=== PATIENT | male | born 1950 | race Caucasian/White ===

== ENCOUNTER 2021-09-05 14:34 | Emergency (ER) | payer MEDICARE, MEDICAID, SELFPAY ==
--- NOTE | ~2021-09-05 | CT_ITS ---
EXAMINATION: CT brain wo con, CT cervical spine wo con EXAM DATE: 09/05/2021 15:49 INDICATION: Fall, head injury. TECHNIQUE: Spiral CT of the head was performed without contrast. Axial, coronal and sagittal images were reviewed. Spiral CT of the cervical spine was performed without contrast. Axial images were rev iewed. Coronal and sagittal reformatted images were also reviewed. The dose-length product (DLP) fo r this examination was 756.67 (accession [id number]), 660.37 (accession [id number]) mGy-cm. The exposure was tailored according to patient size, and iterative reconstruction (ASIR) was used as additional dose reduction technique. There is no prior study for comparison. FINDINGS: HEAD CT: There is no acute intraparenchymal hemorrhage. No evidence of intraparenchymal brain mass l esion. No evidence of acute infarction. There is mild periventricular and subcortical hypodensity, n onspecific but probably related to small vessel ischemic disease. There is moderate prominence of t he sulci and ventricles related to cerebral atrophy. There is no mass effect or midline shift. The re is no obstructive hydrocephalus suspected. There are no extra-axial collections. There are no ac [place] calvarial fractures. The orbits are unremarkable. Soft tissue is unremarkable. Mild to moderat e bilateral ethmoid mucoperiosteal thickening. CERVICAL CT: There is no evidence of acute cervical fracture. The odontoid process is intact. Pre- dens space is normal. Prevertebral soft tissue is normal. There are no soft tissue abnormalities id entified. There is no disc space widening or traumatic vertebral body subluxation suspected. Severe upper thoracic kyphosis. There is 3.5 cm cystic subcutaneous mass in the posterior midline at the th oracolumbar junction, probably a sebaceous cyst but clinical correlation indicated. Cervical thoracic spondylosis. Pacemaker/AICD device. A detailed level by level evaluation of spondylosis can be added as addendum if requested. IMPRESSION: 1. No acute intracranial findings or cervical fracture. 2. Posterior midline subcutaneous cystic mass at cervicothoracic level, could be a large sebaceous c yst but other histology not totally excludable. Clinical correlation. 3. Cervical spondylosis, age-related intracranial findings. 4. Kyphosis. Reviewed, dictated and finalized at location A. TEGIC DEBRIEFING OFFICER IMPRESSION: 1. No acute intracranial findings or cervical fracture. 2. Posterior midline subcutaneous cystic mass at cervicothoracic level, could be a large sebaceous cyst but other histology not totally excludable. Clinical correlation. 3. Cervical spondylosis, age-related intracranial findings. 4. Kyphosis.
[2021-09-05 14:37] VITALS: BP 116/68; PULSE 50; RESP 20; TEMP 36.4; O2SAT 99
[2021-09-05 14:55] VITALS: BP 104/57; PULSE 50; RESP 18; O2SAT 100
[2021-09-05 16:00] VITALS: BP 110/59; PULSE 51; RESP 18; O2SAT 100
[2021-09-05 17:00] VITALS: BP 101/56; PULSE 51; RESP 18; O2SAT 100
--- NOTE | 2021-09-05 18:22 | ED.HEATRA ---
HPI - Head Injury General Chief complaint: Head Injury Stated complaint: fall head trauma Time Seen by Provider: 09/05/21 18:16 Source: EMS Mode of arrival: EMS Limitations: dementia History of Present Illness HPI Narrative: Patient is a 70-year-old male brought in by EMS from the correction after he tried to get out of his wheelchair and fell headfirst hitting his head on the ground. Per EMS, witnessed by correction staff, no LOC. Patient is a very poor historian due to his history of dementia. Related Data Allergies Allergy/AdvReac Type Severity Reaction Status Date / Time No Known Allergies Allergy Unverified 04/03/14 13:09 Review of Systems Review of Systems: All systems reviewed & are unremarkable except as noted in HPI and below ROS unobtainable: Yes other (Dementia history) Constitutional: Constitutional: Reports as per HPI PMFSH Comments Past medical history: Dementia Family history: Unknown social history: Social history: Lives at a correction unknown if patient never smoked Exam Const: General: cooperative, healthy appearing, comfortable, no acute distress, well developed, alert and awake Orientation/consciousness: oriented to person and No confusion Limitations: no limitations HENMT: Ears: hearing grossly normal bilaterally, TM normal on the right and TM normal on the left General nose exam: Normal external nose present, Normal nares present and No nasal discharge present Face and sinus: normal facial exam Mouth: Yes Normal oral and palatal mucosa present, Yes lip normal, Yes tongue normal and Yes oropharynx normal Throat: posterior oropharynx normal, tonsils normal and uvula midline Other: Abrasion right frontotemporal area Eyes: General: appearance normal, both eyes and all related structures Pupils: Equal, round and reactive pupils present EOM: EOMs intact bilaterally Neck: Neck: normal visual inspection, full ROM, no lymphadenopathy and no meningeal signs Chest: Chest palpation & inspection: normal inspection of the chest Resp: Effort & Inspection: normal respiratory effort, able to speak in complete sentences, no respiratory distress and not tachypneic Auscultation: clear to auscultation bilaterally, no crackles, no rales, no rhonchi and no wheezes Cardio: Rate: regular rate Rhythm: regular rhythm Heart sounds: Murmur heart sound present GI: Inspection: normal to inspection GI Palp: No abdominal tenderness, Yes Soft to palpation, No Tenderness to palpation present (GI), No Guarding due to palpation present (GI), No Rigid due to palpation and No Rebound tenderness present Auscultation: normal bowel sounds : General: Yes no CVA tenderness Back/Spine/Pelvis: Back: no CVA tenderness Skin: General skin exam: normal color, no rashes or lesions noted, elasticity normal and turgor normal Neuro: General: oriented to person, tone normal, moves all extremities, Normal light touch and pain sensation, no meningeal signs, no focal motor deficits, CN's II-XI intact bilaterally and No confusion Cranial nerves: Yes Equal, round and reactive pupils present Speech: No Abnormal speech present Sensory Exam: No Sensory deficit (Neuro) Extrem: General: normal to inspection, full ROM and capillary refill normal Psych: Appearance: grossly normal and well kempt Attitude: cooperative Course Vital Signs Vital signs: Vital Signs Temperature 36.4 C L 09/05/21 14:37 Pulse Rate 50 L 09/05/21 14:37 Respiratory Rate 20 09/05/21 14:37 Blood Pressure 116/68 09/05/21 14:37 Pulse Oximetry 99 09/05/21 14:37 Temperature 36.4 C L 09/05/21 14:37 Pulse Rate 50 L 09/05/21 14:55 Respiratory Rate 18 09/05/21 14:55 Blood Pressure 104/57 L 09/05/21 14:55 Pulse Oximetry 100 09/05/21 14:55 Discharge Plan Discharge Clinical Impression: Fall in elderly patient Closed head injury Qualifiers: Encounter type: initial encounter Qualified Code(s): S09.90XA - Unspecified injury of hea
--- NOTE | 2021-09-05 19:32 | PC.NURSE ---
[facility] ETA [address] [facility] has no truck for transfer tonight. [facility] has no truck for transfer tonight
--- NOTE | 2021-09-05 22:36 | PC.NURSE ---
[facility] here.
== END 2021-09-05 22:42 ==
PROVIDERS: Emergency Provider Emergency Medicine
DX: S09.90XA Unspecified injury of head, initial encounter (principal); F03.90 Unspecified dementia, unspecified severity, without behavioral disturbance, psychotic disturbance, mood disturbance, and anxiety; W05.0XXA Fall from non-moving wheelchair, initial encounter
CPT/HCPCS: 70450; 72125; 99284

== ENCOUNTER 2021-11-26 10:49 | Inpatient (IN) | payer MEDICARE, MEDICAID, SELFPAY ==
[2021-11-26] VITALS (12 sets, daily range): BP systolic 78–138; BP diastolic 49–95; PULSE 52–78; RESP 16–18; TEMP 36.6–36.7; O2SAT 97–99
--- NOTE | ~2021-11-26 | XR_ITS ---
EXAMINATION: XR chest 1V portable EXAM DATE: 11/26/2021 12:25 INDICATION: Cough TECHNIQUE: Portable AP frontal chest x-ray was obtained. There is no prior study for comparison. FINDINGS: There is a dual lead pacemaker/AICD seen with leads projecting over the expected locations of the right atrial appendage and right ventricle. The cardiomediastinal silhouette is prominent but magnified on this AP technique. No confluent consolidation, pneumothorax or pleural effusion suspecte d. There are bony degenerative changes. IMPRESSION: No acute findings. Reviewed, dictated and finalized at location B. OR COPYWRITER IMPRESSION: No acute findings.
--- NOTE | ~2021-11-26 | CT_ITS ---
EXAMINATION: CT brain wo con EXAM DATE: 11/26/2021 12:02 INDICATION: Head injury . TECHNIQUE: Spiral CT of the head was performed without contrast. Axial, coronal and sagittal images were reviewed. The dose-length product (DLP) for this examination was 1362.00 mGy-cm. The exposure was tailored according to patient size, and iterative reconstruction (ASIR) was used as additional do se reduction technique. Comparison is made to prior examination from 09/05/2021. FINDINGS: There is no acute intraparenchymal hemorrhage. No evidence of intraparenchymal brain mass lesion. No evidence of acute infarction. Please note that initial head CT has limited sensitivity f or small or acute infarctions. There is mild periventricular and subcortical hypodensity, nonspecific but probably related to small vessel ischemic disease. There is mild to moderate prominence of the sulci and ventricles related to cerebral atrophy. There is intracranial carotid arteriosclerosis. There are no extra-axial collections. There is no mass effect or midline shift. Patient has had bi lateral ocular lens surgery. Soft tissue is unremarkable. Left maxillary sinus window procedure wit h increase in amount of mucoperiosteal thickening, now most of the sinuses opacified. IMPRESSION: 1. No acute intracranial findings. 2. Chronic age related findings. Reviewed, dictated and finalized at location B. RINARY SURGERY TECHNOLOGIST
--- NOTE | 2021-11-26 11:19 | ECG_ITS ---
Measurements Intervals [place] Rate: 60 P: 53 WA: 165 QRS: -33 QRSD: 106 T: 96 QT: 418 QTc: 420 Interpretive Statements SINUS RHYTHM LEFT AXIS DEVIATION POSSIBLE LEFT VENTRICULAR HYPERTROPHY CANNOT RULE OUT SEPTAL INFARCT, AGE INDETERMINATE CONSIDER HIGH LATERAL INFARCT, AGE INDETERMINATE BASELINE ARTIFACT- I, II, III, AVR, AVL, AVF, V1-V6 ABNORMAL ECG Electronically Signed On 11-26-2021 11:41:40 EMPLOYEE COMMUNICATIONS MANAGER by Raul Schultz D.O.
[2021-11-26] MEDS: SODIUM CHLORIDE 0.9% IV 1,000 ML 999 ML IV CONT (11:29)
[2021-11-26 11:51] LABS: Basophils Percent Auto 0.5 % (0.2-1.2); Eosinophils Absolute Auto 0.3 K/mm3 (0-0.3); Eosinophils Percent Auto 4.2 % (0-4.4); Hematocrit 41.5 % (42.0-52.0); Hemoglobin 14.5 g/dL (14.0-18.0); Immature Granulocyte Absolute 0.01 K/mm3 (0.00-0.031); Immature Granulocyte Percent A 0.1 % (0-0.5); Lymphocytes Absolute Auto 1.63 K/mm3 (0.9-3.2); Lymphocytes Percent Auto 20.1 % (18.3-44.2); Mean Corpuscular HGB Conc 34.9 g/dl (32-36); Mean Corpuscular Volume 94.5 fl (80-100); Mean Platelet Volume 9.4 fl (7.4-10.4); Monocytes Absolute Auto 0.7 K/mm3 (0.1-0.6); Monocytes Percent Auto 8.7 % (2.6-8.5); Neutrophils Absolute Auto 5.4 K/mm3 (1.3-6.7); Neutrophils Percent Auto 66.4 % (45.5-73.1); Platelet Count Result 161 k/mm3 (150-375); Red Blood Count 4.39 M/mm3 (4.6-6.20); Red Cell Distribution Width 12.1 % (11.5-14.5); White Blood Count 8.1 K/mm3 (4.5-10.0)
[2021-11-26 12:00] LABS: Prothrombin Time 13.2 Seconds (11.1-14.7)
[2021-11-26 12:01] LABS: Alanine Aminotransferase 8 U/L (4-50); Albumin Level 3.8 g/dL (3.5-5.1); Alkaline Phosphatase 113 U/L (38-126); Anion Gap 3 mmol/L (8-16); Aspartate Amino Transferase 31 U/L (17-59); Bilirubin,Total 0.8 mg/dL (0.2-1.3); Blood Urea Nitrogen 30 mg/dL (9-20); Calcium 9.2 mg/dL (8.4-10.2); Carbon Dioxide 28 mmol/L (22-30); Chloride 109 mmol/L (98-107); Estimated Glomerular Filt Rate > 60; Glucose 97 mg/dL (65-110); Lactic Acid Reflex 0.9 mmol/L (0.7-2.1); Partial Thromboplastin Time 26.1 SECONDS (22.3-36.8); Potassium 4.5 mmol/L (3.4-5.0); Sodium 140 mmol/L (137-145)
--- NOTE | 2021-11-26 12:25 | PC.NURSE ---
Shimon Milner at [facility] and rehab patient was found on the floor at approximately 1600 with his head against the wheelchair. Denies LOC. Today pt reportedly fell again, was found on floor by staff after breakfast. Denies LOC. Annia states patient appears weaker and has low blood pressure.
--- NOTE | 2021-11-26 12:59 | PC.NURSE ---
Pt POA and sister kelly called and updated , states pt is normally confused and impulsive and often attempts to get out of bed.
--- NOTE | 2021-11-26 14:11 | ED.GENADULT ---
HPI - General Adult General Chief complaint: Altered Mental Status Stated complaint: fall Time Seen by Provider: 11/26/21 10:56 History of Present Illness HPI narrative: Patient is a 71-year-old male who is chronically bedbound that presents to the ER from his [facility] with reports of repeat falls x2 over the last 2 days. He also was having drooling from the [facility]. EMS arrived and found patient hypotensive with a blood pressure in the 70s and heart rate in the 40s. Administered 1 mg of atropine and also begin IV fluid. Patient has dementia baseline cannot give history. Related Data Home Medications Medication Instructions Recorded Confirmed aspirin 325 mg PO DAILY 11/26/21 11/26/21 atorvastatin 10 mg PO DAILY 11/26/21 11/26/21 carbidopa-levodopa 1 tablet PO TID 11/26/21 11/26/21 carvedilol 12.5 mg PO BID 11/26/21 11/26/21 cholecalciferol (vitamin D3) 2,000 unit PO BID 11/26/21 11/26/21 [Vitamin D3] docusate sodium [Colace] 100 mg PO DAILY 11/26/21 11/26/21 donepezil 5 mg PO DAILY 11/26/21 11/26/21 fluticasone propionate 2 spray INTRANASAL DAILY 11/26/21 11/26/21 latanoprost 1 drp OPHTHALMIC (EYE) DAILY 11/26/21 11/26/21 lisinopril 5 mg PO DAILY 11/26/21 11/26/21 pxbttnfbmfjh-yhe-urom-FA-vit K 1 tablet PO DAILY 11/26/21 11/26/21 [Adults Multivitamin] potassium chloride 10 meq PO BID 11/26/21 11/26/21 tamsulosin 0.4 mg PO DAILY 11/26/21 11/26/21 Allergies Allergy/AdvReac Type Severity Reaction Status Date / Time No Known Allergies Allergy Unverified 11/26/21 11:33 Review of Systems Review of Systems: ROS unobtainable: Yes unobtainable due to mental status PMFSH Past Medical History Medical History (Updated 11/26/21 @ 20:39 by Denny Negrete MD) Dementia Hyperlipidemia Hypertension Myocardial infarction Parkinsons Surgical History Surgical History (Updated 11/26/21 @ 14:13 by Denny Negrete MD) History of inguinal hernia repair Social History Social History (Updated 11/26/21 @ 14:13 by Denny Negrete MD) Smoking status: Unknown if ever smoked Exam Narrative: GENERAL: Chronically ill-appearing, well-nourished, and in no acute distress. HEAD: Normocephalic, atraumatic. EYES: PERRL and EOMI. ENT: Mucous membranes moist. CHEST: Clear to auscultation. No respiratory distress. HEART: Regular rate and rhythm. Normal peripheral pulses. ABDOMEN: Soft, nontender, nondistended. EXTREMITIES: Normal range of motion. No edema. SKIN: Warm, dry, no rash. NEURO: Alert and oriented x2. PSYCH: Normal mood and affect. Course Course Emergency Course: Patient hypertensive in the 70s upon arrival but without bradycardia. Appropriate response to fluid bolus. We will plan observation. Vital Signs Vital signs: Vital Signs Temperature 97.9 F 11/26/21 11:00 Pulse Rate 68 11/26/21 11:00 Respiratory Rate 16 11/26/21 11:00 Blood Pressure 90/51 L 11/26/21 11:00 Pulse Oximetry 98 11/26/21 11:00 Temperature 98.1 F 11/26/21 19:07 Pulse Rate 56 L 11/26/21 19:07 Respiratory Rate 18 11/26/21 19:07 Blood Pressure 126/77 11/26/21 19:07 Pulse Oximetry 99 11/26/21 19:07 Medical Decision Making Vital Signs Vital Signs: Vital Signs Temperature 97.9 F 11/26/21 11:00 Pulse Rate 68 11/26/21 11:00 Respiratory Rate 16 11/26/21 11:00 Blood Pressure 90/51 L 11/26/21 11:00 Pulse Oximetry 98 11/26/21 11:00 Temperature 98.1 F 11/26/21 19:07 Pulse Rate 56 L 11/26/21 19:07 Respiratory Rate 18 11/26/21 19:07 Blood Pressure 126/77 11/26/21 19:07 Pulse Oximetry 99 11/26/21 19:07 Lab Data Result diagrams: 11/26/21 11:44 11/26/21 11:44 Labs: Lab Results 11/26/21 11/26/21 11/26/21 Range/Units 11:44 11:44 11:44 WBC 8.1 (4.5-10.0) K/mm3 RBC 4.39 L (4.6-6.20) M/mm3 Hgb 14.5 (14.0-18.0) g/dL Hct 41.5 L (42.0-52.0) % MCV 94.5 (80-100) fl MCH 33.0 (26-34) pg MCHC 34.
--- NOTE | 2021-11-26 14:29 | PC.NURSE ---
[facility] updated on admission status.
--- NOTE | 2021-11-26 14:37 | PC.NURSE ---
Publishing Specialist at bedside to visit.
[2021-11-26 15:25] LABS: Add Urine Microscopic? YES; Appearance Urine Clear (Clear); Bilirubin Urine Negative (Negative); Color Urine Yellow (Yellow); Glucose Urine UA Negative (Negative); Ketones Urine Negative (Negative); Leukocyte Esterase Ur 2+ LEU/UL (Negative); Nitrate Urine Negative (Negative); Protein Urine Negative (Negative); Specific Grav Ur 1.019 (1.001-1.035); Squamous Epithelial Cell Urine Rare /hpf (Few); WBC Urine >75 /hpf
[2021-11-26 15:26] LABS: Blood Urine Negative (Negative)
[2021-11-26 16:42] LABS: SARS-CoV-2 RNA PCR Negative
[2021-11-26] MEDS: SODIUM CHLORIDE 0.9% IV 1,000 ML 125 ML IV CONT (17:29)
--- NOTE | 2021-11-26 19:41 | ADMGEN ---
This patient, Joby Rust, was admitted to Medical Room 243-01. Patient/family oriented to hospital policies and general routines including ID bracelet, bed and alarms, visiting hours, pain management, procedures, bathroom and other care routines, personal items, smoking policy, room service/diet, and visiting hours. Information on how to activate the Rapid Response Team has been discussed. Patient/Family are encouraged to report perceived risks to care and to ask questions if they do not understand what they are told or what they should do.
--- NOTE | 2021-11-26 22:50 | PM.IMHP ---
H&P: HPI History of Present Illness Date/Time: 11/26/21 22:00 this is the 71-year-old male patient who resides in a residential. The patient has fallen 2 times over the last 2 days. He has been drooling more at the residential. The patient was found to be hypotensive with blood pressure in the 70s and heart rate in the 40s. The patient was given 1 mg of atropine and also started on IV fluids. He does have a history of dementia at baseline and cannot give a history. The patient was found have a UTI and was started on Rocephin and IV fluids . Chest x-ray was read as no acute Findings. Head CT was read as no acute intracranial findings. Chronic age-related findings. heart rate is currently in the 50s and blood pressure came up to 126/77. Lactic was normal.The patient is being admitted to observation on the date of service 11/26/20. Chief Complaint: confusion Review of Systems Review of Systems: ROS unobtainable: Yes unobtainable due to mental status PMFSH Past Medical History Medical History (Updated 11/26/21 @ 23:08 by Gisela Newell NP) BPH (benign prostatic hyperplasia) Dementia Hyperlipidemia Hypertension Myocardial infarction Parkinsons Surgical History Surgical History History of inguinal hernia repair Family History Family History Other Unknown family medical history Social History Social History (Updated 11/26/21 @ 23:00 by Gisela Newell NP) Social History: The patient is from the residential. He has a very poor historian. The patient is noted to be retired. He has Kathe akins as his durable power transactional attorney and is listed as sibling. He is listed as a full code. Smoking history unknown. Code status full code Smoking status: Unknown if ever smoked Alcohol intake: unknown Substance use: unknown Spiritual care concerns: No Meds Home Medications and Allergies Home Medications Medication Instructions Recorded Confirmed Type aspirin 325 mg PO DAILY 11/26/21 11/26/21 History atorvastatin 10 mg PO DAILY 11/26/21 11/26/21 History carbidopa-levodopa 1 tablet PO TID 11/26/21 11/26/21 History carvedilol 12.5 mg PO BID 11/26/21 11/26/21 History cholecalciferol (vitamin D3) 2,000 unit PO BID 11/26/21 11/26/21 History [Vitamin D3] docusate sodium [Colace] 100 mg PO DAILY 11/26/21 11/26/21 History donepezil 5 mg PO DAILY 11/26/21 11/26/21 History fluticasone propionate 2 spray INTRANASAL DAILY 11/26/21 11/26/21 History latanoprost 1 drp OPHTHALMIC (EYE) DAILY 11/26/21 11/26/21 History lisinopril 5 mg PO DAILY 11/26/21 11/26/21 History zsiepuczjbgh-khv-qzve-FA-vit K 1 tablet PO DAILY 11/26/21 11/26/21 History [Adults Multivitamin] potassium chloride 10 meq PO BID 11/26/21 11/26/21 History tamsulosin 0.4 mg PO DAILY 11/26/21 11/26/21 History Allergies Allergy/AdvReac Type Severity Reaction Status Date / Time No Known Allergies Allergy Unverified 11/26/21 11:33 Vital Signs Vital Signs - 24 hr 11/26/21 11:00 11/26/21 11:29 11/26/21 12:14 Temperature 36.6 C Pulse Rate 68 63 59 L Respiratory Rate 16 16 18 Blood Pressure 90/51 L 78/49 L 115/63 Pulse Oximetry 98 97 98 11/26/21 13:09 11/26/21 14:34 11/26/21 16:14 Temperature Pulse Rate 78 63 78 Respiratory Rate 18 18 18 Blood Pressure 103/57 L 116/81 121/95 H Pulse Oximetry 97 98 98 11/26/21 17:29 11/26/21 18:42 11/26/21 18:49 Temperature Pulse Rate 78 78 78 Respiratory Rate 18 18 18 Blood Pressure 138/88 132/78 Pulse Oximetry 98 98 98 11/26/21 19:07 11/26/21 20:00 Temperature 36.7 C Pulse Rate 56 L 52 L Respiratory Rate 18 Blood Pressure 126/77 Pulse Oximetry 99 Exam Const: General: comfortable, no acute distress, well developed, alert, awake, anxious and combative Nutritional Appearance: average body habitus and well nourished Orientation/consciousness:
[2021-11-26] MEDS: CARBIDOPA/LEVODOPA 25/250 MG TABLET 1 TABLET PO (23:44)
[2021-11-27] VITALS (11 sets, daily range): BP systolic 104–146; BP diastolic 52–76; PULSE 50–89; RESP 16–18; TEMP 36.1–36.7; O2SAT 94–99; BMI 28.8
[2021-11-27] MEDS: SODIUM CHLORIDE 0.9% IV 1,000 ML 125 ML IV CONT (02:39)
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
[2021-11-27] MEDS: DONEPEZIL HCL 5 MG TABLET PO (08:56)
[2021-11-27] MEDS: CARBIDOPA/LEVODOPA 25/250 MG TABLET 1 TABLET PO ×3 (08:56→17:27)
[2021-11-27] MEDS: CHOLECALCIFEROL 1,000 UNITS TABLET 2000 UNITS PO ×2 (08:56→17:27)
[2021-11-27] MEDS: ATORVASTATIN 10 MG TABLET PO (08:56)
[2021-11-27] MEDS: ASPIRIN 325 MG TABLET PO (08:56)
[2021-11-27] MEDS: DOCUSATE SODIUM 100 MG CAPSULE PO (08:56)
[2021-11-27] MEDS: TAMSULOSIN HCL 0.4 MG CAPSULE PO (08:57)
[2021-11-27] MEDS: MULTIVITAMINS /C LUTEIN (CENTRUM SILVER) TABLET *BKC 1 TAB PO (08:57)
[2021-11-27] MEDS: POTASSIUM CHLORIDE 10 MEQ TABLET.ER PO ×2 (08:57→17:27)
[2021-11-27 09:03] LABS: Basophils Percent Auto 0.7 % (0.2-1.2); Eosinophils Absolute Auto 0.4 K/mm3 (0-0.3); Eosinophils Percent Auto 6.5 % (0-4.4); Hematocrit 41.5 % (42.0-52.0); Hemoglobin 14.5 g/dL (14.0-18.0); Immature Granulocyte Absolute 0.01 K/mm3 (0.00-0.031); Immature Granulocyte Percent A 0.2 % (0-0.5); Lymphocytes Absolute Auto 1.51 K/mm3 (0.9-3.2); Lymphocytes Percent Auto 28.1 % (18.3-44.2); Mean Corpuscular HGB Conc 34.9 g/dl (32-36); Mean Corpuscular Hemoglobin 33.3 pg (26-34); Mean Corpuscular Volume 95.2 fl (80-100); Mean Platelet Volume 9.6 fl (7.4-10.4); Monocytes Absolute Auto 0.5 K/mm3 (0.1-0.6); Monocytes Percent Auto 8.7 % (2.6-8.5); Neutrophils Percent Auto 55.8 % (45.5-73.1); Platelet Count Result 143 k/mm3 (150-375); Red Blood Count 4.36 M/mm3 (4.6-6.20); White Blood Count 5.4 K/mm3 (4.5-10.0)
[2021-11-27 09:15] LABS: Lactic Acid Reflex 1.1 mmol/L (0.7-2.1)
[2021-11-27 09:17] LABS: Alanine Aminotransferase 11 U/L (4-50); Albumin Level 3.8 g/dL (3.5-5.1); Alkaline Phosphatase 117 U/L (38-126); Anion Gap 6 mmol/L (8-16); Aspartate Amino Transferase 32 U/L (17-59); Blood Urea Nitrogen 23 mg/dL (9-20); Calcium 8.9 mg/dL (8.4-10.2); Carbon Dioxide 23 mmol/L (22-30); Chloride 109 mmol/L (98-107); Estimated CRCL calculation 61 ml/min; Estimated Glomerular Filt Rate > 60; Glucose 105 mg/dL (65-110); Potassium 4.3 mmol/L (3.4-5.0); Sodium 138 mmol/L (137-145)
[2021-11-27 09:54] LABS: Thyroid Stimulating Hormone Reflex 0.943 uIU/mL (0.465-4.68)
--- NOTE | 2021-11-27 12:29 | PM.IMPN ---
Progress Note: A&P Assessment and Plan (1) Acute UTI: Code(s): N39.0 - Urinary tract infection, site not specified Status: Acute Assessment and Plan: Follow blood and urine cultures Continue Rocephin Continue IVF (2) Bradycardia: Code(s): R00.1 - Bradycardia, unspecified Status: Acute Assessment and Plan: Hold Coreg HR 50s-60s Tele monitoring (3) Hypertension: Code(s): I10 - Essential (primary) hypertension Status: Chronic Assessment and Plan: Patient hypotensive yesterday Holding his Coreg and lisinopril Continue IVF Adjust meds needed Monitor (4) Dementia: Code(s): F03.90 - Unspecified dementia without behavioral disturbance Status: Chronic Assessment and Plan: Continue Aricept (5) Hyperlipidemia: Code(s): E78.5 - Hyperlipidemia, unspecified Status: Chronic Assessment and Plan: Continue Lipitor (6) Parkinsons: Code(s): G20 - Parkinson's disease Status: Chronic Assessment and Plan: Continue with carbidopa levodopa (7) BPH (benign prostatic hyperplasia): Code(s): N40.0 - Benign prostatic hyperplasia without lower urinary tract symptoms Status: Chronic Assessment and Plan: Continue with tamsulosin Subjective Date/time seen: 11/27/21 12:29 Interval history: Pt seen and evaluated; labs, vs, and diagnostic results reviewed; pt confused and not cooperating with nursing staff Review of Systems Review of Systems: All systems reviewed & are unremarkable except as noted in HPI and below Exam Const: General: no acute distress, alert and awake HENMT: Head: normocephalic and atraumatic Ears: hearing grossly normal bilaterally and external ears normal Face and sinus: face symmetric Mouth: Yes Normal oral and palatal mucosa present Eyes: EOM: EOMs intact bilaterally Neck: Neck: full ROM, trachea midline and no JVD Resp: Effort & Inspection: normal respiratory effort Auscultation: clear to auscultation bilaterally Cardio: Jugular venous distension: no JVD Rate: regular rate Rhythm: regular rhythm Heart sounds: S1 normal heart sound present and S2 normal heart sound present GI: Inspection: normal to inspection GI Palp: Yes Soft to palpation Auscultation: normal bowel sounds : General: Yes no CVA tenderness Skin: General skin exam: normal color Rashes: no rashes Neuro: General: oriented to person and moves all extremities Speech: normal speech Extrem: General: no clubbing, cyanosis or edema Psych: Appearance: grossly normal Objective Data Vital Signs Vital Signs: Vital Signs - 24 hr 11/26/21 13:09 11/26/21 14:34 11/26/21 16:14 Temperature Pulse Rate 78 63 78 Respiratory Rate 18 18 18 Blood Pressure 103/57 L 116/81 121/95 H Pulse Oximetry 97 98 98 11/26/21 17:29 11/26/21 18:42 11/26/21 18:49 Temperature Pulse Rate 78 78 78 Respiratory Rate 18 18 18 Blood Pressure 138/88 132/78 Pulse Oximetry 98 98 98 11/26/21 19:07 11/26/21 20:00 11/26/21 21:00 Temperature 36.7 C 36.6 C Pulse Rate 56 L 52 L 63 Respiratory Rate 18 18 Blood Pressure 126/77 88/55 L Pulse Oximetry 99 99 11/27/21 00:00 11/27/21 03:00 11/27/21 04:00 Temperature 36.7 C Pulse Rate 52 L 89 51 L Respiratory Rate 16 Blood Pressure 104/58 L Pulse Oximetry 98 11/27/21 12:00 Temperature Pulse Rate 61 Respiratory Rate Blood Pressure Pulse Oximetry Intake/Output Intake/Output: Intake & Output 11/24/21 11/25/21 11/26/21 11/27/21 23:59 23:59 23:59 23:59 Intake Total 1050 1240 Output Total 100 Balance 950 1240 Meds/Results Medications: Active Medications Generic Name Dose Route Start Last Admin Trade Name Freq PRN Reason Stop Dose Admin Acetaminophen 650 mg 11/26/21 14:23 Acetaminophen 325 Mg Tablet PO Q4H PRN Mild Pain (1-3) or Fever Hydrocodone Bitart/Acetaminophen 1 tab 11/26/21 14:23
[2021-11-27] MEDS: SODIUM CHLORIDE 0.9% IV 1,000 ML 100 ML IV CONT (20:22)
[2021-11-28] VITALS (9 sets, daily range): BP systolic 110–148; BP diastolic 63–82; PULSE 50–63; RESP 12–18; TEMP 35.9–36.6; O2SAT 97–100
[2021-11-28] MEDS: SODIUM CHLORIDE 0.9% IV 1,000 ML 100 ML IV CONT ×2 (05:20→17:21)
[2021-11-28 05:45] LABS: Anion Gap 4 mmol/L (8-16); Blood Urea Nitrogen 22 mg/dL (9-20); Calcium 8.5 mg/dL (8.4-10.2); Carbon Dioxide 22 mmol/L (22-30); Chloride 110 mmol/L (98-107); Estimated CRCL calculation 68 ml/min; Estimated Glomerular Filt Rate > 60; Glucose 90 mg/dL (65-110); Potassium 3.7 mmol/L (3.4-5.0); Sodium 136 mmol/L (137-145)
[2021-11-28 05:49] LABS: Hematocrit 38.3 % (42.0-52.0); Hemoglobin 13.3 g/dL (14.0-18.0); Mean Corpuscular HGB Conc 34.7 g/dl (32-36); Mean Corpuscular Hemoglobin 32.8 pg (26-34); Mean Corpuscular Volume 94.3 fl (80-100); Mean Platelet Volume 9.7 fl (7.4-10.4); Platelet Count Result 137 k/mm3 (150-375); Red Blood Count 4.06 M/mm3 (4.6-6.20); Red Cell Distribution Width 11.9 % (11.5-14.5); White Blood Count 4.8 K/mm3 (4.5-10.0)
[2021-11-28] MEDS: TAMSULOSIN HCL 0.4 MG CAPSULE PO (08:40)
[2021-11-28] MEDS: DOCUSATE SODIUM 100 MG CAPSULE PO (08:40)
[2021-11-28] MEDS: ASPIRIN 325 MG TABLET PO (08:40)
[2021-11-28] MEDS: DONEPEZIL HCL 5 MG TABLET PO (08:40)
[2021-11-28] MEDS: ATORVASTATIN 10 MG TABLET PO (08:40)
[2021-11-28] MEDS: CARBIDOPA/LEVODOPA 25/250 MG TABLET 1 TABLET PO ×3 (08:40→17:20)
[2021-11-28] MEDS: CHOLECALCIFEROL 1,000 UNITS TABLET 2000 UNITS PO ×2 (08:41→17:20)
[2021-11-28] MEDS: MULTIVITAMINS /C LUTEIN (CENTRUM SILVER) TABLET *BKC 1 TAB PO (08:41)
[2021-11-28] MEDS: POTASSIUM CHLORIDE 10 MEQ TABLET.ER PO ×2 (08:41→17:20)
[2021-11-28] MEDS: FLUTICASONE PROPIONATE 0.05% NA SPR 16 GM BTL (*BKC) 2 SPRAY NASAL (08:41)
[2021-11-28] MEDS: LATANOPROST 0.005% OP SOLN 2.5 ML BTL 1 DROP EACH EYE (08:41)
--- NOTE | 2021-11-28 09:09 | PM.IMPN ---
Progress Note: A&P Assessment and Plan (1) BPH (benign prostatic hyperplasia): Code(s): N40.0 - Benign prostatic hyperplasia without lower urinary tract symptoms Status: Chronic Assessment and Plan: Continue home medication monitor (2) Hypertension: Code(s): I10 - Essential (primary) hypertension Status: Chronic Assessment and Plan: Presented with hypotension given IV fluid resolved (3) Dementia: Code(s): F03.90 - Unspecified dementia without behavioral disturbance Status: Chronic Assessment and Plan: Probably worsening continue to monitor Associated with acute metabolic encephalopathy most likely multifactorial secondary to dehydration and parkinsonism and UTI (4) Hyperlipidemia: Code(s): E78.5 - Hyperlipidemia, unspecified Status: Chronic Assessment and Plan: Continue home treated (5) Parkinsons: Code(s): G20 - Parkinson's disease Status: Chronic Assessment and Plan: Continue home medication monitor (6) Acute UTI: Code(s): N39.0 - Urinary tract infection, site not specified Status: Acute Assessment and Plan: Rocephin follow culture result (7) Bradycardia: Code(s): R00.1 - Bradycardia, unspecified Status: Acute Assessment and Plan: Patient currently on Coreg no further episodes of bradycardia Status post atropine in ER Subjective Date/time seen: 11/28/21 09:09 Interval history: Patient seen and examined Patient is confused Patient presented to the hospital with hypotension bradycardia required atropine was found to have UTI and dehydration treated with IV fluid IV antibiotics follow culture results I am seeing the patient for confusion Exam Narrative: Intermittent confusion Chest no wheeze crackles Abdomen nontender nondistended CVS S1 + S2 Lower extremity negative edema Objective Data Vital Signs Vital Signs: Vital Signs - 24 hr 11/27/21 12:00 11/27/21 14:00 11/27/21 16:00 Temperature 97.2 F L Pulse Rate 61 52 L 62 Respiratory Rate 18 Blood Pressure 146/63 H Pulse Oximetry 99 11/27/21 18:00 11/27/21 20:00 11/27/21 20:28 Temperature 97.1 F L 97.5 F L Pulse Rate 54 L 50 L 68 Respiratory Rate 18 16 Blood Pressure 108/52 L 117/60 Pulse Oximetry 95 97 94 11/27/21 21:45 11/27/21 23:55 11/28/21 00:00 Temperature 97.5 F L 97.0 F L Pulse Rate 50 L 50 L 50 L Respiratory Rate 16 16 Blood Pressure 117/60 143/76 H Pulse Oximetry 97 98 11/28/21 04:00 11/28/21 05:26 Temperature 96.9 F L 96.9 F L Pulse Rate 52 L 52 L Respiratory Rate 16 16 Blood Pressure 148/82 H 148/82 H Pulse Oximetry 98 98 Intake/Output Intake/Output: Intake & Output 11/25/21 11/26/21 11/27/21 11/28/21 23:59 23:59 23:59 23:59 Intake Total 1050 2530 1600 Output Total 100 Balance 950 2530 1600 Meds/Results Medications: Active Medications Generic Name Dose Route Start Last Admin Trade Name Freq PRN Reason Stop Dose Admin Acetaminophen 650 mg 11/26/21 14:23 Acetaminophen 325 Mg Tablet PO Q4H PRN Mild Pain (1-3) or Fever Hydrocodone Bitart/Acetaminophen 1 tab 11/26/21 14:23 Hydrocodone/Acetaminophen (*Crx) 5-325 Mg Tablet PO Q4H PRN Pain Rated 4-6 Aspirin 325 mg 11/27/21 09:00 11/28/21 08:40 Aspirin 325 Mg Tablet PO 325 mg DAILY RAY Administration Atorvastatin Calcium 10 mg 11/27/21 09:00 11/28/21 08:40 Atorvastatin 10 Mg Tablet PO 10 mg DAILY RAY Administration Carbidopa/Levodopa 1 tablet 11/26/21 22:57 11/28/21 08:40 Carbidopa/Levodopa 25/250 Mg Tablet PO 1 tablet TID RAY Administration Docusate Sodium 100 mg 11/27/21 09:00 11/28/21 08:40 Docusate Sodium 100 Mg Capsule PO 100 mg DAILY RAY Administration Donepezil HCl 5 mg 11/27/21 09:00 11/28/21 08:40 Donepezil Hcl 5 Mg Tablet PO 5 mg DAILY RAY Administration Fluticasone Propionate 2 spray 11/27/21 09:0
[2021-11-29] VITALS (12 sets, daily range): BP systolic 99–148; BP diastolic 57–92; PULSE 50–74; RESP 14–19; TEMP 36.2–36.7; O2SAT 94–100
[2021-11-29] MEDS: SODIUM CHLORIDE 0.9% IV 1,000 ML 100 ML IV CONT (01:48)
[2021-11-29] MEDS: TAMSULOSIN HCL 0.4 MG CAPSULE PO (08:33)
[2021-11-29] MEDS: DONEPEZIL HCL 5 MG TABLET PO (08:33)
[2021-11-29] MEDS: FLUTICASONE PROPIONATE 0.05% NA SPR 16 GM BTL (*BKC) 2 SPRAY NASAL (08:34)
[2021-11-29] MEDS: CARBIDOPA/LEVODOPA 25/250 MG TABLET 1 TABLET PO ×3 (08:34→17:52)
[2021-11-29] MEDS: POTASSIUM CHLORIDE 10 MEQ TABLET.ER PO ×2 (08:34→17:52)
[2021-11-29] MEDS: MULTIVITAMINS /C LUTEIN (CENTRUM SILVER) TABLET *BKC 1 TAB PO (08:34)
[2021-11-29] MEDS: ASPIRIN 325 MG TABLET PO (08:34)
[2021-11-29] MEDS: CHOLECALCIFEROL 1,000 UNITS TABLET 2000 UNITS PO ×2 (08:34→17:52)
[2021-11-29] MEDS: DOCUSATE SODIUM 100 MG CAPSULE PO (08:34)
[2021-11-29] MEDS: ATORVASTATIN 10 MG TABLET PO (08:34)
[2021-11-29] MEDS: LATANOPROST 0.005% OP SOLN 2.5 ML BTL 1 DROP EACH EYE (08:35)
--- NOTE | 2021-11-29 08:44 | PM.IMPN ---
Progress Note: A&P Assessment and Plan (1) BPH (benign prostatic hyperplasia): Code(s): N40.0 - Benign prostatic hyperplasia without lower urinary tract symptoms Status: Chronic Assessment and Plan: Continue home medication monitor (2) Hypertension: Code(s): I10 - Essential (primary) hypertension Status: Chronic Assessment and Plan: Presented with hypotension given IV fluid resolved (3) Dementia: Code(s): F03.90 - Unspecified dementia without behavioral disturbance Status: Chronic Assessment and Plan: Probably worsening continue to monitor Associated with acute metabolic encephalopathy most likely multifactorial secondary to dehydration and parkinsonism and UTI (4) Hyperlipidemia: Code(s): E78.5 - Hyperlipidemia, unspecified Status: Chronic Assessment and Plan: Continue home treated (5) Parkinsons: Code(s): G20 - Parkinson's disease Status: Chronic Assessment and Plan: Continue home medication monitor (6) Acute UTI: Code(s): N39.0 - Urinary tract infection, site not specified Status: Acute Assessment and Plan: Rocephin follow culture result (7) Bradycardia: Code(s): R00.1 - Bradycardia, unspecified Status: Acute Assessment and Plan: Patient currently off Coreg no further episodes of bradycardia Status post atropine in ER Subjective Date/time seen: 11/29/21 08:44 Interval history: Patient seen and examined Patient is confused Patient presented to the hospital with hypotension bradycardia required atropine also was found to have UTI and dehydration treated with IV fluid IV antibiotics follow culture results I am seeing the patient for confusion Exam Narrative: Intermittent confusion Chest no wheeze crackles Abdomen nontender nondistended CVS S1 + S2 Lower extremity negative edema Objective Data Vital Signs Vital Signs: Vital Signs - 24 hr 11/28/21 09:05 11/28/21 12:00 11/28/21 16:00 Temperature 96.6 F L 97.8 F Pulse Rate 61 58 L 57 L Respiratory Rate 17 12 Blood Pressure 137/65 114/73 Pulse Oximetry 100 98 11/28/21 20:00 11/28/21 21:07 11/29/21 00:00 Temperature 97.6 F 97.5 F L Pulse Rate 50 L 50 L 50 L Respiratory Rate 18 17 Blood Pressure 125/70 135/85 Pulse Oximetry 97 98 11/29/21 04:00 11/29/21 05:09 11/29/21 08:00 Temperature 97.6 F 98.1 F Pulse Rate 51 L 56 L 68 Respiratory Rate 18 18 Blood Pressure 148/92 H 121/74 Pulse Oximetry 100 100 Intake/Output Intake/Output: Intake & Output 11/26/21 11/27/21 11/28/21 11/29/21 23:59 23:59 23:59 23:59 Intake Total 1050 2530 3370 1500 Output Total 100 Balance 950 2530 3370 1500 Meds/Results Medications: Active Medications Generic Name Dose Route Start Last Admin Trade Name Freq PRN Reason Stop Dose Admin Acetaminophen 650 mg 11/26/21 14:23 Acetaminophen 325 Mg Tablet PO Q4H PRN Mild Pain (1-3) or Fever Hydrocodone Bitart/Acetaminophen 1 tab 11/26/21 14:23 Hydrocodone/Acetaminophen (*Crx) 5-325 Mg Tablet PO Q4H PRN Pain Rated 4-6 Aspirin 325 mg 11/27/21 09:00 11/29/21 08:34 Aspirin 325 Mg Tablet PO 325 mg DAILY RAY Administration Atorvastatin Calcium 10 mg 11/27/21 09:00 11/29/21 08:34 Atorvastatin 10 Mg Tablet PO 10 mg DAILY RAY Administration Carbidopa/Levodopa 1 tablet 11/26/21 22:57 11/29/21 08:34 Carbidopa/Levodopa 25/250 Mg Tablet PO 1 tablet TID RAY Administration Docusate Sodium 100 mg 11/27/21 09:00 11/29/21 08:34 Docusate Sodium 100 Mg Capsule PO 100 mg DAILY RAY Administration Donepezil HCl 5 mg 11/27/21 09:00 11/29/21 08:33 Donepezil Hcl 5 Mg Tablet PO 5 mg DAILY RAY Administration Fluticasone Propionate 2 spray 11/27/21 09:00 11/29/21 08:34 Fluticasone Propionate 0.05% Na Spr 16 Gm Btl (*Bkc) NASAL 2 spray DAILY RAY Administration Sodium Chloride 1,000
[2021-11-29 10:00] LABS: Basophils Percent Auto 0.6 % (0.2-1.2); Eosinophils Absolute Auto 0.2 K/mm3 (0-0.3); Eosinophils Percent Auto 4.4 % (0-4.4); Hematocrit 41.5 % (42.0-52.0); Hemoglobin 13.8 g/dL (14.0-18.0); Immature Granulocyte Absolute 0.02 K/mm3 (0.00-0.031); Immature Granulocyte Percent A 0.4 % (0-0.5); Lymphocytes Absolute Auto 1.11 K/mm3 (0.9-3.2); Lymphocytes Percent Auto 21.4 % (18.3-44.2); Mean Corpuscular HGB Conc 33.3 g/dl (32-36); Mean Corpuscular Hemoglobin 33.5 pg (26-34); Mean Corpuscular Volume 100.7 fl (80-100); Mean Platelet Volume 9.6 fl (7.4-10.4); Monocytes Absolute Auto 0.5 K/mm3 (0.1-0.6); Monocytes Percent Auto 8.7 % (2.6-8.5); Neutrophils Absolute Auto 3.3 K/mm3 (1.3-6.7); Neutrophils Percent Auto 64.5 % (45.5-73.1); Platelet Count Result 146 k/mm3 (150-375); Red Blood Count 4.12 M/mm3 (4.6-6.20); Red Cell Distribution Width 11.9 % (11.5-14.5); White Blood Count 5.2 K/mm3 (4.5-10.0)
[2021-11-29 10:16] LABS: Alanine Aminotransferase 13 U/L (4-50); Albumin Level 3.4 g/dL (3.5-5.1); Alkaline Phosphatase 102 U/L (38-126); Anion Gap 8 mmol/L (8-16); Aspartate Amino Transferase 27 U/L (17-59); Bilirubin,Total 0.6 mg/dL (0.2-1.3); Blood Urea Nitrogen 14 mg/dL (9-20); Calcium 8.7 mg/dL (8.4-10.2); Carbon Dioxide 21 mmol/L (22-30); Chloride 109 mmol/L (98-107); Estimated CRCL calculation 68 ml/min; Estimated Glomerular Filt Rate > 60; Glucose 104 mg/dL (65-110); Potassium 3.9 mmol/L (3.4-5.0); Sodium 138 mmol/L (137-145)
[2021-11-30] VITALS (10 sets, daily range): BP systolic 100–137; BP diastolic 56–78; PULSE 50–94; RESP 14–17; TEMP 36.2–36.7; O2SAT 98–100
--- NOTE | 2021-11-30 06:50 | P.PNIM_ITS ---
Progress Note: A&P Assessment and Plan (1) BPH (benign prostatic hyperplasia): Code(s): N40.0 - Benign prostatic hyperplasia without lower urinary tract symptoms Status: Chronic Assessment and Plan: * Trend urine output * Post residual void * Continue home tamsulosin * Strict I&O (2) Hypertension: Code(s): I10 - Essential (primary) hypertension Status: Chronic Assessment and Plan: * Current BP 133/70 * Presented with hypotension * hydration given which seemed to resolve * Trend BP * Adjust therapy as indicated (3) Dementia: Code(s): F03.90 - Unspecified dementia without behavioral disturbance Status: Chronic Assessment and Plan: * Reported to be confused * Unknown baseline * Continue donepezil 5mg PO daily * Could be worsening (4) Hyperlipidemia: Code(s): E78.5 - Hyperlipidemia, unspecified Status: Chronic Assessment and Plan: * Continue home atorvastatin 10mg PO daily * LFTs are within the normal range (5) Parkinsons: Code(s): G20 - Parkinson's disease Status: Chronic Assessment and Plan: * Frequent falls reported * Continue carbidopa levodopa 25/250 * Fall precautions * With patient's mental status wonder if this is even being given (6) Acute UTI: Code(s): N39.0 - Urinary tract infection, site not specified Status: Acute Assessment and Plan: * UA showed leukocyte esterase 2+, WBC >75 * Urine culture contaminated * Will continue antibiotic therapy since antibiotics have been given over the last couple of days * Trend symptoms (7) Bradycardia: Code(s): R00.1 - Bradycardia, unspecified Status: Acute Assessment and Plan: * HR is in the 40-50s * Atropine in the ED * Coreg stopped * HR remains in the 50s (8) Acute metabolic encephalopathy: Code(s): G93.41 - Metabolic encephalopathy Status: Acute Assessment and Plan: * Could be from dementia, Parkinson's, or UTI * Continue antibiotics and home medications * Head CT: Chronic age related findings * Could be patient's baseline * Baseline unknown Time Spent With Patient Time with patient: Greater than 35 minutes Subjective Date/time seen: 11/30/21 06:50 Interval history: Date/Time: 11/26/21 22:00 This is the 71-year-old male patient who resides in a senior care. The patient has fallen 2 times over the last 2 days. He has been drooling more at the senior care. The patient was found to be hypotensive with blood pressure in the 70s and heart rate in the 40s. The patient was given 1 mg of atropine and also started on IV fluids. He does have a history of dementia at baseline and cannot give a history. The patient was found have a UTI and was started on Rocephin and IV fluids . Chest x-ray was read as no acute Findings. Head CT was read as no acute intracranial findings. Chronic age-related findings. heart rate is currently in the 50s and blood pressure came up to 126/77. Lactic was normal. Date/time seen: 11/27/21 12:29 Pt seen and evaluated; labs, vs, and diagnostic results reviewed; pt confused and not cooperating with nursing staff. Date/time seen: 11/28/21 09:09 Patient seen and examined, Patient is confused, Patient presented to the hospital with hypotension bradycardia required atropine was found to have UTI and dehydration treat
--- NOTE | 2021-11-30 06:50 | PM.IMPN ---
Progress Note: A&P Assessment and Plan (1) BPH (benign prostatic hyperplasia): Code(s): N40.0 - Benign prostatic hyperplasia without lower urinary tract symptoms Status: Chronic Assessment and Plan: Trend urine output Post residual void Continue home tamsulosin Strict I&O (2) Hypertension: Code(s): I10 - Essential (primary) hypertension Status: Chronic Assessment and Plan: Current BP 133/70 Presented with hypotension hydration given which seemed to resolve Trend BP Adjust therapy as indicated (3) Dementia: Code(s): F03.90 - Unspecified dementia without behavioral disturbance Status: Chronic Assessment and Plan: Reported to be confused Unknown baseline Continue donepezil 5mg PO daily Could be worsening (4) Hyperlipidemia: Code(s): E78.5 - Hyperlipidemia, unspecified Status: Chronic Assessment and Plan: Continue home atorvastatin 10mg PO daily LFTs are within the normal range (5) Parkinsons: Code(s): G20 - Parkinson's disease Status: Chronic Assessment and Plan: Frequent falls reported Continue carbidopa levodopa 25/250 Fall precautions With patient's mental status wonder if this is even being given (6) Acute UTI: Code(s): N39.0 - Urinary tract infection, site not specified Status: Acute Assessment and Plan: UA showed leukocyte esterase 2+, WBC >75 Urine culture contaminated Will continue antibiotic therapy since antibiotics have been given over the last couple of days Trend symptoms (7) Bradycardia: Code(s): R00.1 - Bradycardia, unspecified Status: Acute Assessment and Plan: HR is in the 40-50s Atropine in the ED Coreg stopped HR remains in the 50s (8) Acute metabolic encephalopathy: Code(s): G93.41 - Metabolic encephalopathy Status: Acute Assessment and Plan: Could be from dementia, Parkinson's, or UTI Continue antibiotics and home medications Head CT: Chronic age related findings Could be patient's baseline Baseline unknown Time Spent With Patient Time with patient: Greater than 35 minutes Subjective Date/time seen: 11/30/21 06:50 Interval history: Date/Time: 11/26/21 22:00 This is the 71-year-old male patient who resides in a skilled nursing. The patient has fallen 2 times over the last 2 days. He has been drooling more at the skilled nursing. The patient was found to be hypotensive with blood pressure in the 70s and heart rate in the 40s. The patient was given 1 mg of atropine and also started on IV fluids. He does have a history of dementia at baseline and cannot give a history. The patient was found have a UTI and was started on Rocephin and IV fluids . Chest x-ray was read as no acute Findings. Head CT was read as no acute intracranial findings. Chronic age-related findings. heart rate is currently in the 50s and blood pressure came up to 126/77. Lactic was normal. Date/time seen: 11/27/21 12:29 Pt seen and evaluated; labs, vs, and diagnostic results reviewed; pt confused and not cooperating with nursing staff. Date/time seen: 11/28/21 09:09 Patient seen and examined, Patient is confused, Patient presented to the hospital with hypotension bradycardia required atropine was found to have UTI and dehydration treated with IV fluid IV antibiotics follow culture results, I am seeing the patient for confusion. Review of Systems Review of Systems: All systems reviewed & are unremarkable except as noted in HPI and below ROS unobtainable: Yes unobtainable due to mental status Exam Const: General: comfortable, no acute distress, well developed, alert, awake, anxious and combative Nutritional Appearance: average body habitus and well nourished Orientation/consciousness: oriented to person Limitations: altered mental status HENMT: Head: normal
[2021-11-30 08:16] LABS: Glucose Point of Care 96 mg/dl (65-105)
--- NOTE | 2021-11-30 08:30 | PM.DS ---
DS: Admitting Diagnosis Discharge Date 11/30/21829 Admitting Diagnosis Acute metabolic encephalopathy and urinary tract infection DS: Discharge Diagnosis Discharge Diagnosis (1) BPH (benign prostatic hyperplasia): Code(s): N40.0 - Benign prostatic hyperplasia without lower urinary tract symptoms Status: Chronic Assessment and Plan: Trend urine output Post residual void Continue home tamsulosin Strict I&O (2) Hypertension: Code(s): I10 - Essential (primary) hypertension Status: Chronic Assessment and Plan: Current BP 133/70 Presented with hypotension hydration given which seemed to resolve Trend BP Adjust therapy as indicated (3) Dementia: Code(s): F03.90 - Unspecified dementia without behavioral disturbance Status: Chronic Assessment and Plan: Reported to be confused Unknown baseline Continue donepezil 5mg PO daily Could be worsening (4) Hyperlipidemia: Code(s): E78.5 - Hyperlipidemia, unspecified Status: Chronic Assessment and Plan: Continue home atorvastatin 10mg PO daily LFTs are within the normal range (5) Parkinsons: Code(s): G20 - Parkinson's disease Status: Chronic Assessment and Plan: Frequent falls reported Continue carbidopa levodopa 25/250 Fall precautions With patient's mental status wonder if this is even being given (6) Acute UTI: Code(s): N39.0 - Urinary tract infection, site not specified Status: Acute Assessment and Plan: UA showed leukocyte esterase 2+, WBC >75 Urine culture contaminated Will continue antibiotic therapy since antibiotics have been given over the last couple of days Trend symptoms (7) Bradycardia: Code(s): R00.1 - Bradycardia, unspecified Status: Acute Assessment and Plan: HR is in the 40-50s Atropine in the ED Coreg stopped HR remains in the 50s (8) Acute metabolic encephalopathy: Code(s): G93.41 - Metabolic encephalopathy Status: Acute Assessment and Plan: Could be from dementia, Parkinson's, or UTI Continue antibiotics and home medications Head CT: Chronic age related findings Could be patient's baseline Baseline unknown DS: Summary Hospital Course Hospital Course: patient is a 71-year-old male with a past medical history hyperlipidemia, hypertension, [place], Parkinson's who presented to the ED for frequent falls and confusion. UA was performed and was suspicious for UTI. Patient was started on IV ceftriaxone and was given a total of 4 days. Patient was also noted to be bradycardic and was given atropine in the ED. bradycardia has not resolved patient is still running in the 50s with a heart rate. However his Coreg has been stopped. Patient denies any kind of pain nausea, vomiting, diarrhea, constipation, weakness, fatigue. Patient states that he feels good and he is ready to go back. Labs and vital signs have been stable on remained stable throughout the visit. Head CT showed no intracranial findings and chest x-ray also showed no findings. White blood cell count is stable. I did talk to his sister who stated that this is his baseline he has about A&O times 1-2. Patient does come from [place] which she stated she feels safe there. She also stated the patient is mostly wheelchair bound due to decreased control of his leg. She also stated that he enjoyed doing PT and OT and would like to see if he can do a little bit of PT OT for transfer purposes. Family and patient have no objections to discharge at this time patient will be going back to [facility]. Status at Discharge Functional status at discharge: wheelchair bound Overall status at discharge: patient is progressing back to baseline Time Spent with Patient Time attestation: Total time spent providing and/or coordinating discharge services: 48 minutes Time spent: Mary
--- NOTE | 2021-11-30 08:30 | P.DS_ITS ---
DS: Admitting Diagnosis Discharge Date 11/30/21829 Admitting Diagnosis Acute metabolic encephalopathy and urinary tract infection DS: Discharge Diagnosis Discharge Diagnosis (1) BPH (benign prostatic hyperplasia): Code(s): N40.0 - Benign prostatic hyperplasia without lower urinary tract symptoms Status: Chronic Assessment and Plan: * Trend urine output * Post residual void * Continue home tamsulosin * Strict I&O (2) Hypertension: Code(s): I10 - Essential (primary) hypertension Status: Chronic Assessment and Plan: * Current BP 133/70 * Presented with hypotension * hydration given which seemed to resolve * Trend BP * Adjust therapy as indicated (3) Dementia: Code(s): F03.90 - Unspecified dementia without behavioral disturbance Status: Chronic Assessment and Plan: * Reported to be confused * Unknown baseline * Continue donepezil 5mg PO daily * Could be worsening (4) Hyperlipidemia: Code(s): E78.5 - Hyperlipidemia, unspecified Status: Chronic Assessment and Plan: * Continue home atorvastatin 10mg PO daily * LFTs are within the normal range (5) Parkinsons: Code(s): G20 - Parkinson's disease Status: Chronic Assessment and Plan: * Frequent falls reported * Continue carbidopa levodopa 25/250 * Fall precautions * With patient's mental status wonder if this is even being given (6) Acute UTI: Code(s): N39.0 - Urinary tract infection, site not specified Status: Acute Assessment and Plan: * UA showed leukocyte esterase 2+, WBC >75 * Urine culture contaminated * Will continue antibiotic therapy since antibiotics have been given over the last couple of days * Trend symptoms (7) Bradycardia: Code(s): R00.1 - Bradycardia, unspecified Status: Acute Assessment and Plan: * HR is in the 40-50s * Atropine in the ED * Coreg stopped * HR remains in the 50s (8) Acute metabolic encephalopathy: Code(s): G93.41 - Metabolic encephalopathy Status: Acute Assessment and Plan: * Could be from dementia, Parkinson's, or UTI * Continue antibiotics and home medications * Head CT: Chronic age related findings * Could be patient's baseline * Baseline unknown DS: Summary Hospital Course Hospital Course: patient is a 71-year-old male with a past medical history hyperlipidemia, hypertension, [place], Parkinson's who presented to the ED for frequent falls and confusion. UA was performed and was suspicious for UTI. Patient was started on IV ceftriaxone and was given a total of 4 days. Patient was also noted to be bradycardic and was given atropine in the ED. bradycardia has not resolved patient is still running in the 50s with a heart rate. However his Coreg has been stopped. Patient denies any kind of pain nausea, vomiting, diarrhea, constipation, weakness, fatigue. Patient states that he feels good and he is ready to go back. Labs and vital signs have been stable on remained stable throughout the visit. Head CT showed no intracranial findings and chest x-ray also showed no findings. White blood cell count is stable. I did talk to his sister who stated that this is his baseline he has about A&O times 1-2. Patient does come from [place] which she stated she feels safe there. She also stated the patient is mostly wheelchair bound due to decreased control of his
[2021-11-30] MEDS: ASPIRIN 325 MG TABLET PO (09:09)
[2021-11-30] MEDS: CARBIDOPA/LEVODOPA 25/250 MG TABLET 1 TABLET PO ×3 (09:10→16:28)
[2021-11-30] MEDS: ATORVASTATIN 10 MG TABLET PO (09:10)
[2021-11-30] MEDS: TAMSULOSIN HCL 0.4 MG CAPSULE PO (09:10)
[2021-11-30] MEDS: MULTIVITAMINS /C LUTEIN (CENTRUM SILVER) TABLET *BKC 1 TAB PO (09:11)
[2021-11-30] MEDS: CHOLECALCIFEROL 1,000 UNITS TABLET 2000 UNITS PO ×2 (09:11→16:28)
[2021-11-30] MEDS: DONEPEZIL HCL 5 MG TABLET PO (09:12)
[2021-11-30] MEDS: DOCUSATE SODIUM 100 MG CAPSULE PO (09:12)
[2021-11-30] MEDS: POTASSIUM CHLORIDE 10 MEQ TABLET.ER PO ×2 (09:12→16:28)
[2021-11-30] MEDS: FLUTICASONE PROPIONATE 0.05% NA SPR 16 GM BTL (*BKC) 2 SPRAY NASAL (09:13)
[2021-11-30] MEDS: LATANOPROST 0.005% OP SOLN 2.5 ML BTL 1 DROP EACH EYE (09:14)
[2021-11-30 11:23] LABS: Basophils Percent Auto 0.7 % (0.2-1.2); Eosinophils Absolute Auto 0.2 K/mm3 (0-0.3); Eosinophils Percent Auto 2.7 % (0-4.4); Hematocrit 43.9 % (42.0-52.0); Hemoglobin 15.5 g/dL (14.0-18.0); Immature Granulocyte Absolute 0.02 K/mm3 (0.00-0.031); Immature Granulocyte Percent A 0.3 % (0-0.5); Lymphocytes Absolute Auto 1.21 K/mm3 (0.9-3.2); Lymphocytes Percent Auto 20.5 % (18.3-44.2); Mean Corpuscular HGB Conc 35.3 g/dl (32-36); Mean Corpuscular Hemoglobin 32.7 pg (26-34); Mean Corpuscular Volume 92.6 fl (80-100); Mean Platelet Volume 9.4 fl (7.4-10.4); Monocytes Absolute Auto 0.5 K/mm3 (0.1-0.6); Monocytes Percent Auto 8.5 % (2.6-8.5); Neutrophils Percent Auto 67.3 % (45.5-73.1); Platelet Count Result 197 k/mm3 (150-375); Red Blood Count 4.74 M/mm3 (4.6-6.20); Red Cell Distribution Width 11.9 % (11.5-14.5); White Blood Count 5.9 K/mm3 (4.5-10.0)
[2021-11-30 11:34] LABS: Alanine Aminotransferase 16 U/L (4-50); Alkaline Phosphatase 124 U/L (38-126); Anion Gap 7 mmol/L (8-16); Aspartate Amino Transferase 32 U/L (17-59); Bilirubin,Total 0.7 mg/dL (0.2-1.3); Blood Urea Nitrogen 14 mg/dL (9-20); Calcium 8.8 mg/dL (8.4-10.2); Carbon Dioxide 28 mmol/L (22-30); Chloride 102 mmol/L (98-107); Estimated CRCL calculation 68 ml/min; Estimated Glomerular Filt Rate > 60; Glucose 103 mg/dL (65-110); Potassium 3.8 mmol/L (3.4-5.0); Sodium 137 mmol/L (137-145)
[2021-11-30 17:36] LABS: EDCOVIDSCREEN Negative (Negative)
== END 2021-11-30 21:00 | DRG 689 ==
LOC: ANHED 11:04 → ANH2MED 20:39
PROVIDERS: Internal Medicine; Nurse Practitioner; Nurse Practitioner Adult Health; Admitting Provider Internal Medicine; Emergency Provider Emergency Medicine; Visit Provider Nurse Practitioner
DX: N39.0 Urinary tract infection, site not specified (principal); G93.41 Metabolic encephalopathy; R00.1 Bradycardia, unspecified; I10 Essential (primary) hypertension; E78.5 Hyperlipidemia, unspecified; G20 Parkinson's disease; N40.0 Benign prostatic hyperplasia without lower urinary tract symptoms; Z20.822 Contact with and (suspected) exposure to COVID-19; Z99.3 Dependence on wheelchair; Z79.899 Other long term (current) drug therapy; I25.2 Old myocardial infarction; F02.80 Dementia in other diseases classified elsewhere, unspecified severity, without behavioral disturbance, psychotic disturbance, mood disturbance, and anxiety; E86.0 Dehydration; I95.9 Hypotension, unspecified
CPT/HCPCS: 36415; 51701; 70450; 71045; 80048; 80053; 81001; 82948; 83605; 83735; 84443; 85025; 85027; 85610; 85730; 87040; 87086; 87088; 87426; 93005; 96361; 96365; 97161; 97165; 99285; A9270; C9803; G0378; J0696; J7030; U0003; U0005